=== PATIENT | male | born 1985 | race Two or more races ===

== ENCOUNTER 2020-07-31 20:50 | Inpatient (IN) | payer OTHER ==
[~2020-07-31] VITALS: Ht 180.3 cm; Wt 86.2 kg
--- NOTE | 2020-07-31 20:56 | NUR ---
Pt bibRA and [employer] c/o etoh withdrawl, and rt arm pain s/p fall x1day. Pt aaox4 breathing evenly and unlabored. Upon assessment, pt is sweating and shakey. Per pt, he drinks 5-8 pints of vodka a day for 6 months and his last drink was yesterday at 1999. Pt attached to cardiac sonographer and pox. PA at bedside for eval. Pt given blanket and call light within reach
--- NOTE | 2020-07-31 21:12 | NUR ---
lab at bedside
[2020-07-31] MEDS ORDERED: ONDANSETRON HCL/PF 4 MG/2 ML VIAL ONE (21:13)
[2020-07-31] MEDS ORDERED: FOLIC ACID 1 MG TABLET ONE (21:13)
[2020-07-31] MEDS ORDERED: Thiamine 100 MG/ML VIAL ONE (21:13)
[2020-07-31] MEDS ORDERED: LORAZEPAM INJ 2 MG/ML VIAL ONE (21:14)
[2020-07-31] MEDS ORDERED: Thiamine 100 MG in IV D5W 50 ML IV SCH (21:30)
[2020-07-31] MEDS ORDERED: FOLIC ACID 1 MG TABLET PO ONE (21:30)
[2020-07-31] MEDS ORDERED: IV NS 0.9% 1,000 ML BAG IV ONE ×2 (21:30→22:30)
[2020-07-31] MEDS ORDERED: LORAZEPAM INJ 2 MG/ML VIAL IVP ONE (21:30)
[2020-07-31] MEDS ORDERED: ONDANSETRON HCL/PF 4 MG/2 ML VIAL IVP ONE (21:30)
[2020-07-31 21:32] LABS: BASOPHILS # (AUTO) 0.1 /CMM (0.0-0.2); BASOPHILS % (AUTO) 0.5 % (0.0-2.0); HEMATOCRIT 42 % (39-51); HEMOGLOBIN 14.3 g/dL (13.5-17.5); LYMPHOCYTES # (AUTO) 0.8 /CMM (0.8-4.8); LYMPHOCYTES % (AUTO) 7.6 % (20.0-44.0); MEAN CORPUSCULAR HGB CONC 34 g/dl (31.0-36.0); MEAN CORPUSCULAR VOLUME 96 fL (80-96); MONOCYTES # (AUTO) 0.6 /CMM (0.1-1.30); MONOCYTES % (AUTO) 6.4 % (2.0-12.0); NEUTROPHILS # (AUTO) 8.7 /CMM (1.8-8.9); NEUTROPHILS % (AUTO) 85.5 % (43.0-81.0); PLATELET COUNT (AUTO) 253 /CMM (150-450); WHITE BLOOD COUNT (AUTO) 10.1 K/uL (4.3-11.0)
[2020-07-31 21:40] LABS: MAGNESIUM 1.9 mg/dL (1.8-2.4)
--- NOTE | 2020-07-31 21:43 | NUR ---
taken to ct
[2020-07-31 21:45] LABS: ALANINE AMINOTRANSFERASE 49 U/L (12-78); ALBUMIN 3.7 g/dL (3.4-5.0); ALCOHOL, BLOOD 30 mg/dL (0-0); ALKALINE PHOSPHATASE 153 U/L (46-116); ASPARTATE AMINOTRANSFERASE 82 U/L (15-37); BILIRUBIN,DIRECT 0.3 mg/dL (0.0-0.2); BILIRUBIN,TOTAL 1.4 mg/dL (0.2-1.0); CALCIUM, SERUM 8.4 mg/dL (8.5-10.1); CARBON DIOXIDE 26 mmol/L (21-32); CHLORIDE 100 mmol/L (98-107); CREATININE 1.2 mg/dL (0.6-1.3); GLUCOSE 95 mg/dL (74-106); POTASSIUM 4.1 mmol/L (3.5-5.1); SODIUM SERUM 139 mmol/L (136-145); TOTAL PROTEIN, SERUM 8.2 g/dL (6.4-8.2); UREA NITROGEN, BLOOD 14 mg/dL (7-18)
[2020-07-31 21:46] LABS: ACETAMINOPHEN < 10 ug/ml (10-30)
--- NOTE | 2020-07-31 22:25 | NUR ---
PATIENT RETURNED FROM CT [employer] AT BEDSIDE
[2020-07-31] MEDS ORDERED: KETOROLAC TROMETHAMINE INJ 30 MG/ML VIAL ONE (22:46)
--- NOTE | 2020-07-31 22:47 | NUR ---
covid swab sent to lab
--- NOTE | 2020-07-31 22:50 | NUR ---
called lab for seed cone picker
[2020-07-31] MEDS ORDERED: KETOROLAC TROMETHAMINE INJ 30 MG/ML VIAL IV ONE (23:00)
--- NOTE | 2020-07-31 23:15 | NUR ---
urine sent to lab
--- NOTE | 2020-07-31 23:16 | NUR ---
called lab for pickup
--- NOTE | 2020-07-31 23:32 | NUR ---
marina released patient from custody d/t pt being admitted to hospital
[2020-07-31 23:38] LABS: BILIRUBIN,URINE Negative (NEGATIVE); COLOR,URINE YELLOW (YELLOW); LEUKOCYTE ESTERASE ,URINE Negative (NEGATIVE); NITRITE, URINE Negative (NEGATIVE); PROTEIN,URINE 100 mg/dl (NEGATIVE); UGLUCOSE Negative (NEGATIVE); UROBILINOGEN,URINE 0.2 EU/dL (0.2)
[2020-07-31 23:51] LABS: BACTERIA,URINE Few /HPF (None Seen); MUCUS,URINE Few /LPF (None Seen); SQUAMOUS EPITHELIAL CELL,UR Few /HPF (None Seen)
--- NOTE | 2020-08-01 00:12 | NUR ---
dr virgen called back, speaking to dr. bustillo
--- NOTE | 2020-08-01 00:25 | NUR ---
gave report to RICHAR Larkin for janie
[2020-08-01] MEDS ORDERED: PHARMACY ADD 1 AMP MVI TO IVF DAILY ONE BAG XX PRN (00:30)
[2020-08-01] MEDS ORDERED: MAGNESIUM HYDROXIDE 30 ML UDC PO PRN (00:30)
[2020-08-01] MEDS ORDERED: ZOLPIDEM TARTRATE 5 MG TABLET PO PRN (00:30)
[2020-08-01] MEDS ORDERED: Z GUARD REMEDY 2 OZ OINT TP PRN (00:30)
[2020-08-01] MEDS ORDERED: ACETAMINOPHEN 325 MG TABLET PO PRN (00:30)
[2020-08-01] MEDS ORDERED: ONDANSETRON HCL/PF 4 MG/2 ML VIAL IVP PRN (00:30)
[2020-08-01] MEDS ORDERED: MAG HYDROX/AL HYDROX/SIMETH 30 ML UDC PO PRN (00:30)
[2020-08-01 00:55] VITALS: BP 136/86
--- NOTE | 2020-08-01 00:57 | NUR ---
PATIENT TRANSFERRED PER [facility] Addendum: 08/01/20 at 0058 by RAFIA PATIENT TRANSFERRED PER [facility] PROTOCOL
[2020-08-01] MEDS: LORAZEPAM INJ 2 MG/ML VIAL IV PRN ×2 (01:36→05:22)
[2020-08-01] MEDS: IV NS 0.9% 1,000 ML IV SCH ×2 (01:36→08:28)
[2020-08-01 02:25] VITALS: BP 136/86
[2020-08-01 04:02] VITALS: BP 139/77
--- NOTE | 2020-08-01 05:03 | NUR ---
ENDING NOTES: ALERT AND ORIENTATED X4 DIAPHORETIC AT TIME, STATING MY EYES BURN D/T "MY SWEAT" HIS SCLERA IS PINK-RED..WASH CLOTH AND TOWEL GIVEN TO HIM ASKED HIM TO WASH HIS FACE SPLASHING COOL H20 ON HIS FACE SHOULD HELP MEDICATED TIMES 2 THIS 12 HOURS SHIFT SINCE COMING TO THE FLOOR FROM THE ER WITH DX ETOH WITHDRAAWL MEDICATED WITH ATIVAN FOR HIS ANXIETH AND WITHDRAWLS "SHAKINESS" AND EFFECTIVE AMBULATES IN THE ROOM NOTED RIGHT ARM IS DEFORMED STATES HE HAD SURGERY ON THIS ARM RASH ON HIS UPPER BACK NOT SEEN SCATCHING SMILING AND PLEASENT
[2020-08-01 06:52] LABS: BASOPHILS % (AUTO) 0.8 % (0.0-2.0); EOSINOPHILS % (AUTO) 0.1 % (0.0-6.0); HEMATOCRIT 40 % (39-51); HEMOGLOBIN 13.4 g/dL (13.5-17.5); LYMPHOCYTES % (AUTO) 15.7 % (20.0-44.0); MEAN CORPUSCULAR HGB CONC 34 g/dl (31.0-36.0); MEAN CORPUSCULAR VOLUME 97 fL (80-96); MONOCYTES # (AUTO) 0.7 /CMM (0.1-1.30); MONOCYTES % (AUTO) 11.2 % (2.0-12.0); NEUTROPHILS # (AUTO) 4.4 /CMM (1.8-8.9); NEUTROPHILS % (AUTO) 72.2 % (43.0-81.0); PLATELET COUNT (AUTO) 223 /CMM (150-450); RED BLOOD CELL COUNT(AUTO) 4.09 MIL/uL (4.5-6.0); WHITE BLOOD COUNT (AUTO) 6.1 K/uL (4.3-11.0)
[2020-08-01 07:16] LABS: CALCIUM, SERUM 8.3 mg/dL (8.5-10.1); CREATININE 1.1 mg/dL (0.6-1.3); POTASSIUM 3.4 mmol/L (3.5-5.1)
[2020-08-01 07:19] LABS: PHOSPHORUS 2.7 mg/dL (2.5-4.9)
[2020-08-01] MEDS ORDERED: MVI ADULT 10ML VIAL = 1AMP 10 ML in IV NS 0.9% 1,000 ML IV PRN (08:00)
--- NOTE | 2020-08-01 08:00 | NUR ---
RN OPENING NOTE RECEIVED PATIENT IN BED, AO X 3, NOTICED DELUSIONAL THIS MORNING STATED '"SOMEONE DOWN STAIRS TO KILL ME". ABLE TO RESPONDS ALL STIMULI. NO S/S OF DISTRESS OBSERVED. SKIN IS WARM TO TOUCH KEEP CLEAN/DRY, INTACT IV SITE. RESPIRATORY EVEN AND UNLABORED ON ROOM AIR, NO DISTRESS OBSERVED. KEPT ELEVATED HOB FOR ENSURE AIRWAY AND ASPIRATION PRECAUTION, ALSO LOWEST BED POSITION FOR SAFETY. ENCOURAGED PATIENT TO STAY IN ROOM DURING IV. CALL LIGHT WITHIN REACH, WILL CONTINUE TO MONITOR.
[2020-08-01] MEDS: POTASSIUM CL. PREMIX PERIPHER. 50 ML IV SCH ×2 (09:25→10:52)
[2020-08-01] MEDS: CHLORDIAZEPOXIDE HCL 25 MG CAPSULE PO SCH ×2 (09:25→12:20)
[2020-08-01] MEDS ORDERED: NICOTINE PATCH (21MG) 21 MG PATCH.TD24 TD SCH (12:00)
[2020-08-01] MEDS ORDERED: MVI ADULT 10ML VIAL = 1AMP 10 ML in IV NS 0.9% 1,000 ML IV ONE (15:22)
--- NOTE | 2020-08-01 19:17 | NUR ---
PATIENT PACING HALLWAY ALL DAY, KEEPS SAID "I WANT TO SMOKE". PATIENT HAS NICITINE PATCH 21MG. PATIENT SIGNED AMA AND LEFT FACILITY. REMOVED ID BAND AND IV BEFORE PATIENT LEAVE, INFORMED MD.
[2020-08-01] MEDS ORDERED: Folic acid 1 MG in IV D5W 50 ML IV SCH ×2 (20:00→21:00)
[2020-08-01] MEDS ORDERED: Thiamine 100 MG in IV D5W 50 ML IV SCH (21:00)
--- NOTE | 2020-08-03 08:29 | NUR ---
SS Consult received over the weekend for ETOH abuse & Homelessness. Pt. has already departed.
== END 2020-08-01 19:05 | disposition left against medical advice (07) | DRG 770 ==
LOC: ER 20:53 → TELE 08-01 00:37
PROVIDERS: ADMIT Internal Medicine; ATTEND Internal Medicine
DX: F10.239 Alcohol dependence with withdrawal, unspecified (principal); G93.41 Metabolic encephalopathy; Z20.822 Contact with and (suspected) exposure to COVID-19; F41.9 Anxiety disorder, unspecified; F32.9 Major depressive disorder, single episode, unspecified; Y90.1 Blood alcohol level of 20-39 mg/100 ml; F29 Unspecified psychosis not due to a substance or known physiological condition; M62.82 Rhabdomyolysis; E87.6 Hypokalemia; S50.11XA Contusion of right forearm, initial encounter; X58.XXXA Exposure to other specified factors, initial encounter; Y92.9 Unspecified place or not applicable; Z59.0 Homelessness
CPT/HCPCS: 36415; 70450-TC; 72125-TC; 73090-TC; 73110; 80048-TC; 80061-TC; 80076-TC; 81001; 82550-TC; 82553; 83690-TC; 83735-TC; 84100-TC; 85025-TC; 87081-TC; 87086-TC; C9803; G0378; G0480; J1885; J2060; J2405; J3411; J3480; J3490; J7030; J7060